=== PATIENT | female | born 1990 | race Caucasian/White ===

== ENCOUNTER 2018-03-27 11:24 | Inpatient (IN) | payer OTHER ==
[~2018-03-27] VITALS: Ht 162.6 cm; Wt 69.9 kg
[2018-03-27] MEDS ORDERED: LACTATED RINGERS 1,000 ML IV SCH (11:43)
[2018-03-27] MEDS ORDERED: OXYTOCIN 20 UNITS in LACTATED RINGERS 1,000 ML IV SCH (11:43)
[2018-03-27] MEDS ORDERED: PROMETHAZINE 25 MG/ML VIAL IVP PRN (11:45)
[2018-03-27] MEDS ORDERED: MISOPROSTOL 25 MCG TAB VG PRN (11:45)
[2018-03-27] MEDS ORDERED: OXYTOCIN 10 UNITS/ML VIAL IM PRN ×2 (11:45→19:20)
[2018-03-27] MEDS ORDERED: METHYLERGONOVINE 0.2 MG/ML AMP IM PRN ×2 (11:45→19:20)
[2018-03-27 12:30] VITALS: BP 120/69
[2018-03-27 13:02] LABS: BASOPHILS % (AUTO) 0.4 % (0.0-2.0); EOSINOPHILS % (AUTO) 0.5 % (0.0-4.0); HEMATOCRIT 31.6 % (36-48); HEMOGLOBIN 10.7 g/dL (12.0-16.0); LYMPHOCYTES # (AUTO) 1.3 K/uL (2.5-16.5); LYMPHOCYTES % (AUTO) 13.9 % (20.5-51.1); MEAN CORPUSCULAR HEMOGLOBIN 28 pg (27-31); MEAN CORPUSCULAR HGB CONC 34 g/dL (33-37); MONOCYTES # (AUTO) 0.8 K/uL (0.8-1.0); MONOCYTES % (AUTO) 8.2 % (1.7-9.3); NEUTROPHILS # (AUTO) 7.1 K/uL (1.8-7.7); PLATELET COUNT (AUTO) 197 K/uL (140-450); RED BLOOD CELL COUNT(AUTO) 3.86 MIL/uL (4.20-5.40); RED CELL DISTRIBUTION WIDTH 13.1 % (11.6-13.7); WHITE BLOOD COUNT (AUTO) 9.3 K/uL (4.8-10.8)
[2018-03-27 13:11] LABS: APPEARANCE,URINE HAZY (CLEAR); BILIRUBIN,URINE NEGATIVE (NEGATIVE); BLOOD, URINE NEGATIVE (NEGATIVE); COLOR,URINE YELLOW (YELLOW); LEUKOCYTE ESTERASE ,URINE NEGATIVE (NEGATIVE); NITRITE, URINE NEGATIVE (NEGATIVE); UGLUCOSE NEGATIVE (NEGATIVE)
[2018-03-27] MEDS ORDERED: CITRIC ACID/SODIUM CITRATE 30 ML UDC ONE (15:19)
[2018-03-27] MEDS ORDERED: NALBUPHINE 10 MG/ML AMP ONE ×2 (16:44→16:47)
[2018-03-27] MEDS ORDERED: BUPIVACAINE 0.125%/NS PREMIX 250 ML ONE (16:59)
[2018-03-27] MEDS ORDERED: OXYTOCIN 10 UNITS/ML VIAL ONE (18:57)
[2018-03-27] MEDS ORDERED: TEMAZEPAM 15 MG CAP PO PRN (19:20)
[2018-03-27] MEDS ORDERED: oxyCODONE/APAP 5/325 MG 1 TAB TAB PO PRN (19:20)
[2018-03-27] MEDS ORDERED: BENZOCAINE/MENTHOL 20%-0.5% 60 GM CAN TP PRN (19:20)
[2018-03-27] MEDS ORDERED: MEASLES, MUMPS, AND RUBELLA 1 VIAL SQVAC PRN (19:20)
[2018-03-27] MEDS ORDERED: DOCUSATE SOD/SENNA 50/8.6 MG 1 TAB PO SCH (21:00)
[2018-03-28 07:22] LABS: HEMATOCRIT 27.9 % (36-48); HEMOGLOBIN 9.6 g/dL (12.0-16.0)
[2018-03-28] MEDS: IBUPROFEN 800 MG TAB PO PRN ×2 (07:35→17:23)
[2018-03-28] MEDS ORDERED: HYDROcodone/APAP 5/325 MG 1 TAB TAB PO PRN (08:10)
--- NOTE | 2018-03-28 11:02 | NUR ---
PATIENT HAS BEEN SCREENED AND CATEGORIZED LOW NUTRITION RISK. PATIENT WILL BE SEEN WITHIN 7 DAYS OF ADMISSION. 04/02/[address]
[2018-03-29] MEDS ORDERED: IBUP-1801 PO (11:39)
== END 2018-03-29 18:05 | disposition home or self-care (01) | DRG 560 ==
LOC: MLD 11:24 → MFCC 03-28
PROVIDERS: ADMIT Obstetrics & Gynecology; ATTEND Obstetrics & Gynecology
PROC: 10E0XZZ Delivery of Products of Conception, External Approach (ICD-10-PCS; principal; 2018-03-27)
PROC: 10907ZC Drainage of Amniotic Fluid, Therapeutic from Products of Conception, Via Natural or Artificial Opening (ICD-10-PCS; 2018-03-27)
PROC: 3E033VJ Introduction of Other Hormone into Peripheral Vein, Percutaneous Approach (ICD-10-PCS; 2018-03-27)
PROC: 00HU33Z Insertion of Infusion Device into Spinal Canal, Percutaneous Approach (ICD-10-PCS; 2018-03-27)
PROC: 3E0R3BZ Introduction of Anesthetic Agent into Spinal Canal, Percutaneous Approach (ICD-10-PCS; 2018-03-27)
DX: O99.02 Anemia complicating childbirth (principal); D64.9 Anemia, unspecified; Z37.0 Single live birth; Z3A.38 38 weeks gestation of pregnancy
CPT/HCPCS: 36415; 51702; 59409; 81003; 85018; 85025; 86592; 86886; 86900; 86901; 90715; J2300; J2590; J3490; J7120

== ENCOUNTER 2018-09-02 17:12 | Emergency (ER) | payer OTHER ==
[~2018-09-02] VITALS: Ht 165.1 cm; Wt 62.6 kg
[2018-09-02 17:18] VITALS: BP 139/77
--- NOTE | 2018-09-02 17:30 | NUR ---
PATIENT TAKEN TO ER CHAIR E.
--- NOTE | 2018-09-02 18:08 | NUR ---
pt was taken to er bed 1 via wheelchair
[2018-09-02] MEDS ORDERED: NACL 0.9% 1,000 ML IV SCH (18:34)
[2018-09-02] MEDS ORDERED: NACL 0.9% 1,000 ML IV ONE (18:34)
[2018-09-02] MEDS ORDERED: ONDANSETRON 4 MG/2 ML VIAL IVP ONE (18:35)
[2018-09-02] MEDS ORDERED: LOPERAMIDE 2 MG CAP PO ONE (18:35)
[2018-09-02] MEDS ORDERED: FAMOTIDINE 20 MG/2 ML VIAL IVP ONE (18:35)
--- NOTE | 2018-09-02 18:35 | NUR ---
PATIENT UNABLE TO PROVIDE URINE AT THIS TIME. PT STATES "I CANT GO RIGHT NOW."
--- NOTE | 2018-09-02 18:46 | NUR ---
28 YO F BIB AMBULANCE. C/O N/V/D CLEAR EMESIS SINCE TODAY, . PT STATES TO HAVING A MIRGRAIN SINCE THIS MORNING. PT DENIES BLURRY VISION OR VISUAL DISTURBANCES. PT TO ZOLOF THIS MORNING 20MG. RX: ZOLOF, SERTALINE
[2018-09-02 18:52] LABS: BASOPHILS % (AUTO) 0.1 % (0.0-2.0); HEMATOCRIT 38.1 % (36-48); HEMOGLOBIN 12.8 g/dL (12.0-16.0); LYMPHOCYTES # (AUTO) 0.5 K/uL (2.5-16.5); LYMPHOCYTES % (AUTO) 4.6 % (20.5-51.1); MEAN CORPUSCULAR HEMOGLOBIN 28 pg (27-31); MEAN CORPUSCULAR HGB CONC 34 g/dL (33-37); MEAN CORPUSCULAR VOLUME 83.2 fL (80-94); MONOCYTES # (AUTO) 0.2 K/uL (0.8-1.0); MONOCYTES % (AUTO) 1.6 % (1.7-9.3); NEUTROPHILS # (AUTO) 11.1 K/uL (1.8-7.7); NEUTROPHILS % (AUTO) 93.7 % (42.2-75.2); PLATELET COUNT (AUTO) 233 K/uL (140-450); RED BLOOD CELL COUNT(AUTO) 4.58 MIL/uL (4.20-5.40); RED CELL DISTRIBUTION WIDTH 13.1 % (11.6-13.7); WHITE BLOOD COUNT (AUTO) 11.8 K/uL (4.8-10.8)
[2018-09-02 19:15] LABS: ALBUMIN 3.8 g/dL (3.4-5.0); CARBON DIOXIDE 28.3 mmol/L (21-32); CREATININE 0.7 mg/dL (0.6-1.3); POTASSIUM 4.3 mmol/L (3.5-5.1); TOTAL BILIRUBIN 0.4 mg/dL (0.0-1.0)
--- NOTE | 2018-09-02 20:30 | NUR ---
PT LYING IN BED, VITALS STABLE. COMFORT MEASURES OFFERED PT TOLERATED WELL.
[2018-09-02 21:31] LABS: APPEARANCE,URINE CLEAR (CLEAR); BILIRUBIN,URINE SMALL (NEGATIVE); BLOOD, URINE LARGE (NEGATIVE); COLOR,URINE YELLOW (YELLOW); LEUKOCYTE ESTERASE ,URINE NEGATIVE (NEGATIVE); NITRITE, URINE POSITIVE (NEGATIVE); UGLUCOSE NEGATIVE (NEGATIVE)
--- NOTE | 2018-09-02 21:47 | NUR ---
Dr. Ramirez evaluating patient at bedside.
--- NOTE | 2018-09-02 21:56 | NUR ---
PT LYING IN BED, VITALS STABLE.
[2018-09-02 21:59] LABS: BARBITURATE, URINE NEG. ng/ml (NEG <=200); BENZODIAZEPINE, URINE NEG. ng/mL (NEG <=200); CANNABINOID, URINE NEG. ng/mL (NEG <=50); COCAINE, URINE NEG. ng/mL (NEG <=300); OPIATE, URINE NEG. ng/mL (NEG <=2000); PHENCYCLIDINE SCREEN,URINE NEG. ng/mL (NEG <=25)
[2018-09-02] MEDS ORDERED: ACETAMINOPHEN 325 MG TAB PO ONE (22:00)
[2018-09-02 22:30] VITALS: BP 121/85
--- NOTE | 2018-09-02 22:30 | NUR ---
Patient discharged with v/s stable. Written and verbal after care instructions given and explained. Patient alert, oriented and verbalized understanding of instructions. Ambulatory with steady gait. All questions addressed prior to discharge. ID band removed. Patient advised to follow up with PMD. Rx of ACETAMINOPHEN 500MG given. Patient educated on indication of medication including possible reaction and side effects. Opportunity to ask questions provided and answered.
== END 2018-09-02 22:30 | disposition home or self-care (01) ==
LOC: MED 17:12
DX: R19.7 Diarrhea, unspecified (principal); T43.595A Adverse effect of other antipsychotics and neuroleptics, initial encounter; T43.225A Adverse effect of selective serotonin reuptake inhibitors, initial encounter; R11.2 Nausea with vomiting, unspecified; R25.1 Tremor, unspecified; I10 Essential (primary) hypertension; Z88.5 Allergy status to narcotic agent; Y92.89 Other specified places as the place of occurrence of the external cause
CPT/HCPCS: 36415; 80053; 80305; 81003; 81025; 82150; 83690; 85025; 96361; 96374; 96375; 99283; J2405; J3490; J7030

== ENCOUNTER 2022-04-28 21:02 | Emergency (ER) | payer OTHER ==
[~2022-04-28] VITALS: Ht 162.6 cm; Wt 66.7 kg
[2022-04-28 21:02] VITALS: BP 128/98
--- NOTE | 2022-04-28 21:07 | NUR ---
PT SHIRA BLS. TAKEN TO BED 8
--- NOTE | 2022-04-28 21:10 | NUR ---
PATIENT AMBULATED TO THE RR
--- NOTE | 2022-04-28 21:30 | NUR ---
31/F BIBA FROM HOME C/C VAGINAL BLEEDING XTODAY. PER PATIETN SHE STARTED HAVING HEAVY BLEEDING AFTER USING THE RR AND SOAKED A PAD. PT REPORTS ABD CRAMPING 04/11. SHE HAS AN OB, APPT SCHEDULED ON 05/08. PER PATIENT SHE HAS FELT LIKE THIS IN THE PAST SHES HAD 3 MISSCARRIAGES. PATIENT PLACED IN GOWN AND MONITOR. BED LOW AND LOCKED. JOANIE SIDE RAILS FOR SAFETY. CALL LIGHT IN REACH. ALL NEEDS MET LMP 01/25 14 WEEKS, DENIES PMHX, RX ALLERGIES CODEINE
--- NOTE | 2022-04-28 21:30 | NUR ---
IV ESTABLISHED 20G LEFT AC
--- NOTE | 2022-04-28 21:30 | NUR ---
BLOOD COLLECTED AND WALKED TO LAB
[2022-04-28 21:40] LABS: BASOPHILS % (AUTO) 0.2 % (0.0-2.0); EOSINOPHILS % (AUTO) 0.5 % (0.0-4.0); HEMATOCRIT 34.3 % (36-48); HEMOGLOBIN 11.8 g/dL (12.0-16.0); LYMPHOCYTES # (AUTO) 1.7 K/uL (2.5-16.5); LYMPHOCYTES % (AUTO) 20.7 % (20.5-51.1); MEAN CORPUSCULAR HEMOGLOBIN 29 pg (27-31); MEAN CORPUSCULAR HGB CONC 34 g/dL (33-37); MEAN CORPUSCULAR VOLUME 85.1 fL (80-94); MONOCYTES # (AUTO) 0.6 K/uL (0.8-1.0); MONOCYTES % (AUTO) 7.7 % (1.7-9.3); NEUTROPHILS # (AUTO) 5.8 K/uL (1.8-7.7); NEUTROPHILS % (AUTO) 70.9 % (42.2-75.2); PLATELET COUNT (AUTO) 198 K/uL (140-450); RED BLOOD CELL COUNT(AUTO) 4.03 MIL/uL (4.20-5.40); RED CELL DISTRIBUTION WIDTH 13.4 % (11.6-13.7); WHITE BLOOD COUNT (AUTO) 8.1 K/uL (4.8-10.8)
[2022-04-28] MEDS: NACL 0.9% 1,000 ML IV ONE (21:40)
[2022-04-28 21:58] LABS: ALBUMIN 3.4 g/dL (3.4-5.0); ANION GAP 10.8 (8-16); CARBON DIOXIDE 25.9 mmol/L (21-32); CREATININE 0.5 mg/dL (0.6-1.3); POTASSIUM 3.7 mmol/L (3.5-5.1); TOTAL BILIRUBIN 0.4 mg/dL (0.0-1.0)
--- NOTE | 2022-04-28 22:38 | NUR ---
Ultrasound at bedside.
--- NOTE | 2022-04-28 22:39 | NUR ---
US AT BEDSIDE
--- NOTE | 2022-04-29 00:30 | NUR ---
ETA FOR US READING 30-45MIN.
[2022-04-29 00:42] LABS: APPEARANCE,URINE CLEAR (CLEAR); BILIRUBIN,URINE 1+ (NEGATIVE); BLOOD, URINE 3+ (NEGATIVE); COLOR,URINE YELLOW (YELLOW); LEUKOCYTE ESTERASE ,URINE 1+ (NEGATIVE); NITRITE, URINE NEGATIVE (NEGATIVE); UGLUCOSE NEGATIVE (NEGATIVE)
[2022-04-29 00:50] LABS: WBC,URINE 0-5 /HPF (0-5)
--- NOTE | 2022-04-29 01:25 | NUR ---
Patient being evaluated by physician at bedside.
[2022-04-29] MEDS ORDERED: NITR100C7 PO (01:27)
[2022-04-29] MEDS ORDERED: ONDA8TAB87 PO (01:27)
[2022-04-29 01:37] VITALS: BP 125/80
--- NOTE | 2022-04-29 01:37 | NUR ---
Patient discharged with v/s stable. Written and verbal after care instructions given and explained. Patient alert, oriented and verbalized understanding of instructions. Ambulatory with steady gait. All questions addressed prior to discharge. ID band removed. Patient advised to follow up with PMD. Rx of NITROFURANTOIN MONOHYD/M-CRYST AND ONDANSETRON HCL given.
--- NOTE | 2022-04-29 01:37 | NUR ---
PATIENT AMBULATED TO THE RR
--- NOTE | 2022-05-01 18:32 | NUR ---
LATE ENTRY. RECEIVED POSITIVE URINE CULTURE. DISCREPANCY LOG SIGNED BY DR MARIE. TREATMENT APPROPRIATE. FORM PLACED IN BINDER
== END 2022-04-29 01:37 | disposition home or self-care (01) ==
LOC: MED 21:02
DX: O23.41 Unspecified infection of urinary tract in pregnancy, first trimester (principal); I25.2 Old myocardial infarction; Z88.5 Allergy status to narcotic agent; Z3A.14 14 weeks gestation of pregnancy
CPT/HCPCS: 36415; 76801; 80053; 81001; 81025; 84702; 85025; 86886; 86900; 86901; 87086; 96360; 99284; J7030; Q0092